=== PATIENT | male | born 1940 | race Caucasian/White ===

== ENCOUNTER → 2020-04-07 | Day surgery (SDC) | payer MEDICARE, OTHER ==
[~2020-04-07] VITALS: Ht 177.8 cm; Wt 76.8 kg
[~2020-04-07] MED LIST: ASPIRIN CHEWABL81 MG PO; ASPIRIN EC81 MG PO; CALCIUM500 MG PO; CARVEDILOL3.125 MG PO; DIOVAN80 MG PO; EZETIMIBE-SIMV1 EAC3 PO; LASIX20 MG PO; LAXATIVE5 M1 PO; MEGACE ORA6 TSP/1 OZ PO; MS CONTIN30 MG PO; NORCO 5-325 TA1 EACH PO; ONDANSETRON ODT8 MG PO; STOOL SOFTENER50 MG PO; VALSARTAN80 MG PO; VITAMIN D31250 MC1 PO; XTANDI40 MG PO
[2020-04-07 09:18] LABS: ALBUMIN 3.5 g/dL (3.4-5.0); BILIRUBIN - TOTAL 0.4 mg/dL (0.2-1.0); BUN/CREAT RATIO (CALC) 20.4 RATIO; CREATININE 0.93 mg/dL (0.67-1.17); GLOBULIN (CALCULATION) 4.1 g/dL; POTASSIUM 4.5 mmol/L (3.5-5.1); TOTAL PROTEIN 7.6 g/dL (6.4-8.2)
[2020-04-07 09:26] LABS: HCT 42.7 % (42.0-52.0); HGB 14.1 g/dl (13.2-18.0); MCH 29.7 pg (25.0-31.0); MCV 90.1 fL (78.0-100.0); MPV 10.5 fL (6.0-9.5); RBC 4.74 M/uL (4.70-6.00); RDW 12.4 % (11.5-14.0); WBC 6.9 K/uL (4.0-10.5)
== END | disposition home or self-care (01) ==
LOC: FAS 08:20
PROVIDERS: Surgery
DX: R93.3 Abnormal findings on diagnostic imaging of other parts of digestive tract (principal); R10.13 Epigastric pain; R11.0 Nausea; I25.10 Atherosclerotic heart disease of native coronary artery without angina pectoris; K82.8 Other specified diseases of gallbladder; E78.00 Pure hypercholesterolemia, unspecified; I25.2 Old myocardial infarction; I10 Essential (primary) hypertension; C61 Malignant neoplasm of prostate; I25.5 Ischemic cardiomyopathy; Z95.1 Presence of aortocoronary bypass graft; Z79.82 Long term (current) use of aspirin; Z87.891 Personal history of nicotine dependence; K21.9 Gastro-esophageal reflux disease without esophagitis; Z88.5 Allergy status to narcotic agent
CPT/HCPCS: 36415; 80053; 86140; J1610; J2704; J7120

== ENCOUNTER 2020-09-03 11:27 | Emergency (ER) | payer MEDICARE, OTHER ==
[~2020-09-03 11:27] MED LIST changes: -ASPIRIN EC81 MG PO; -CALCIUM500 MG PO; -DIOVAN80 MG PO; -LASIX20 MG PO; -LAXATIVE5 M1 PO; -MEGACE ORA6 TSP/1 OZ PO; -MS CONTIN30 MG PO; -STOOL SOFTENER50 MG PO; -VITAMIN D31250 MC1 PO; -XTANDI40 MG PO
[2020-09-03 13:08] LABS: BASOPHIL 0.4 % (0-2); EOSINOPHIL 0.3 % (0-7); HCT 30.2 % (42.0-52.0); HGB 9.6 g/dl (13.2-18.0); LYMPHOCYTE 7.2 % (15-48); MCH 27.7 pg (25.0-31.0); MCHC 31.8 g/dL (32.0-36.0); MCV 87.3 fL (78.0-100.0); MONOCYTE 8.6 % (0-12); MPV 10.9 fL (6.0-9.5); NEUTROPHIL 78.4 % (41-80); NRBC 0; PLT 351 K/uL (150-400); RBC 3.46 M/uL (4.70-6.00); RDW 17.2 % (11.5-14.0); WBC 6.9 K/uL (4.0-10.5)
[2020-09-03 13:26] LABS: BILIRUBIN NEGATIVE (NEGATIVE); BLOOD NEGATIVE Ery/uL (NEGATIVE); CLARITY CLEAR (CLEAR); COLOR YELLOW (YELLOW); GLUCOSE (U) NORMAL (NORMAL); LEUKOCYTES NEGATIVE Leu/uL (NEGATIVE); NITRITE NEGATIVE (NEGATIVE); PROTEIN TRACE (LOW) mg/dL (NEGATIVE); UROBILINOGEN 0.2 mg/dL (0.2-1.0); pH 5.5 (5.0-9.0)
[2020-09-03 13:27] LABS: ALBUMIN 2.2 g/dL (3.4-5.0); BILIRUBIN - TOTAL 0.5 mg/dL (0.2-1.0); BUN/CREAT RATIO (CALC) 40.8 RATIO; CREATININE 1.03 mg/dL (0.67-1.17); GLOBULIN (CALCULATION) 5.2 g/dL; POTASSIUM 4.7 mmol/L (3.5-5.1); TOTAL PROTEIN 7.4 g/dL (6.4-8.2)
[2020-09-03 13:43] LABS: BACTERIA TRACE
[2020-09-03 13:44] LABS: SQUAMOUS EPITHELIAL CELLS RARE
== END 2020-09-03 15:30 | disposition home or self-care (01) ==
LOC: FER 11:27
PROVIDERS: Emergency Medicine
DX: R62.7 Adult failure to thrive (principal); R53.1 Weakness; I10 Essential (primary) hypertension; E78.5 Hyperlipidemia, unspecified; Z85.46 Personal history of malignant neoplasm of prostate; Z91.041 Radiographic dye allergy status
CPT/HCPCS: 36415; 80053; 81001; 85025; 99284; J7030

== ENCOUNTER 2020-09-10 15:27 | Inpatient (IN) | payer MEDICARE, OTHER ==
[~2020-09-10] VITALS: Ht 180.3 cm; Wt 70.0 kg
[2020-09-10 16:56] LABS: BASOPHIL 0.2 % (0-2); EOSINOPHIL 0.2 % (0-7); HCT 27.9 % (42.0-52.0); HGB 8.9 g/dl (13.2-18.0); LYMPHOCYTE 6.9 % (15-48); MCH 27.3 pg (25.0-31.0); MCHC 31.9 g/dL (32.0-36.0); MCV 85.6 fL (78.0-100.0); MONOCYTE 8.3 % (0-12); MPV 10.9 fL (6.0-9.5); NEUTROPHIL 79.2 % (41-80); NRBC 0; PLT 362 K/uL (150-400); RBC 3.26 M/uL (4.70-6.00); RDW 17.3 % (11.5-14.0)
[2020-09-10 16:57] LABS: WBC 8.8 K/uL (4.0-10.5)
[2020-09-10 17:05] LABS: BILIRUBIN - TOTAL 0.5 mg/dL (0.2-1.0); CREATININE 3.3 mg/dL (0.67-1.17); GLOBULIN (CALCULATION) 4.9 g/dL; POTASSIUM 4.7 mmol/L (3.5-5.1); TOTAL PROTEIN 6.9 g/dL (6.4-8.2)
[2020-09-10 18:37] LABS: BILIRUBIN 1+ mg/dL (NEGATIVE); BLOOD 2+ Ery/uL (NEGATIVE); CLARITY CLEAR (CLEAR); COLOR YELLOW (YELLOW); GLUCOSE (U) 1+ mg/dL (NORMAL); LEUKOCYTES NEGATIVE Leu/uL (NEGATIVE); NITRITE NEGATIVE (NEGATIVE); PROTEIN 1+ mg/dL (NEGATIVE); SPECIFIC GRAVITY 1.025 (1.001-1.030); UROBILINOGEN 0.2 mg/dL (0.2-1.0)
[2020-09-10 18:44] LABS: AMORPHOUS URATES CRYSTALS MODERATE; BACTERIA 3+; GRANULAR CASTS TRACE; MUCOUS TRACE
[2020-09-10] MEDS ORDERED: MS CONTIN30 MG PO (20:27)
[2020-09-10] MEDS ORDERED: VITAMIN D31250 MC1 PO (20:28)
[2020-09-10] MEDS ORDERED: CALCIUM500 MG PO (20:29)
[2020-09-10] MEDS ORDERED: XTANDI40 MG PO (20:31)
[2020-09-10] MEDS ORDERED: CARVEDILOL3.125 MG PO (20:31)
[2020-09-10] MEDS ORDERED: LASIX20 MG PO (20:32)
[2020-09-10] MEDS ORDERED: DIOVAN80 MG PO (20:32)
[2020-09-10] MEDS ORDERED: LAXATIVE5 M1 PO (20:32)
[2020-09-10] MEDS ORDERED: STOOL SOFTENER50 MG PO (20:33)
[2020-09-10] MEDS ORDERED: ASPIRIN EC81 MG PO (20:33)
[2020-09-10] MEDS ORDERED: EZETIMIBE-SIMV1 EAC3 PO (20:34)
--- NOTE | 2020-09-11 05:39 | NUR ---
0515 PT BED ALARM ACTIVATED, STAFF WENT INTO ROOM, PT ON FLOOR, HIT BACK ON IV POLE. NOTIFIED DIRECTOR OF CASEWORK SERVICES, PT EVALUATED BY DIRECTOR OF CASEWORK SERVICES, CLEARED TO LIFT PT BACK INTO BED. INJURIES NOTED- SMALL ROUND INDENTION TO LEFT LOWER BACK FROM IV POLE. REDNESS AND BRUISING NOTED. ABRASTION TO LEFT ELBOW REOPENED-BLEEDING. ADHESIVE DRSG PLACED. PT STATES IS NOT IN PAIN AND DID NOT HIT HEAD. NO INJURIES TO HEAD. NOTED. NURSE NET DEVELOPER WITH [facility] NOTIFIED. BED ALARM ACTIVATED. 0530 SITTER AT BEDSIDE
[2020-09-11 05:52] LABS: BASOPHIL 0.4 % (0-2); EOSINOPHIL 0.1 % (0-7); HCT 27.4 % (42.0-52.0); HGB 8.9 g/dl (13.2-18.0); LYMPHOCYTE 7.9 % (15-48); MCH 27.6 pg (25.0-31.0); MCHC 32.5 g/dL (32.0-36.0); MCV 85.1 fL (78.0-100.0); MONOCYTE 8.6 % (0-12); MPV 11.2 fL (6.0-9.5); NEUTROPHIL 76.2 % (41-80); NRBC 0; PLT 360 K/uL (150-400); RBC 3.22 M/uL (4.70-6.00); RDW 17.6 % (11.5-14.0); WBC 8.4 K/uL (4.0-10.5)
--- NOTE | 2020-09-11 06:04 | NUR ---
0600 CALLED FAMILY TO NOTIFY TO UPDATE ON PT CONDITION. NO ANSWER AT THIS TIME
[2020-09-11 06:20] LABS: ALBUMIN 1.8 g/dL (3.4-5.0); BILIRUBIN - TOTAL 0.4 mg/dL (0.2-1.0); CREATININE 2.39 mg/dL (0.67-1.17); GLOBULIN (CALCULATION) 4.6 g/dL; POTASSIUM 4.5 mmol/L (3.5-5.1); TOTAL PROTEIN 6.4 g/dL (6.4-8.2)
[2020-09-12 03:59] LABS: MCH 27.1 pg (25.0-31.0); MCV 87.3 fL (78.0-100.0); MPV 11.4 fL (6.0-9.5); RBC 3.32 M/uL (4.70-6.00); RDW 17.8 % (11.5-14.0); WBC 6.4 K/uL (4.0-10.5)
[2020-09-12 04:10] LABS: BUN/CREAT RATIO (CALC) 29.3 RATIO; CREATININE 1.64 mg/dL (0.67-1.17); POTASSIUM 3.7 mmol/L (3.5-5.1)
[2020-09-13 07:25] LABS: HCT 28.4 % (42.0-52.0); HGB 8.9 g/dl (13.2-18.0); MCH 27.4 pg (25.0-31.0); MCHC 31.3 g/dL (32.0-36.0); MCV 87.4 fL (78.0-100.0); MPV 10.9 fL (6.0-9.5); RBC 3.25 M/uL (4.70-6.00); RDW 18.2 % (11.5-14.0); WBC 7.5 K/uL (4.0-10.5)
[2020-09-13 07:35] LABS: CREATININE 1.08 mg/dL (0.67-1.17); POTASSIUM 3.6 mmol/L (3.5-5.1)
--- NOTE | 2020-09-13 17:28 | NUR ---
BLADDER SCANNED AT 1200 POST VOID. 568 REMAINING. STATED TO ANCHOR CYR CATH
[2020-09-15 05:58] LABS: BASOPHIL 1.5 % (0-2); EOSINOPHIL 2.3 % (0-7); HCT 26.7 % (42.0-52.0); HGB 8.3 g/dl (13.2-18.0); LYMPHOCYTE 12.1 % (15-48); MCH 26.3 pg (25.0-31.0); MCHC 31.1 g/dL (32.0-36.0); MCV 84.8 fL (78.0-100.0); MONOCYTE 7.6 % (0-12); MPV 10.7 fL (6.0-9.5); NEUTROPHIL 65.3 % (41-80); NRBC 0; PLT 314 K/uL (150-400); RBC 3.15 M/uL (4.70-6.00); RDW 18.6 % (11.5-14.0)
[2020-09-15 06:01] LABS: WBC 4.7 K/uL (4.0-10.5)
[2020-09-15 06:20] LABS: BUN/CREAT RATIO (CALC) 18.2 RATIO; CREATININE 0.66 mg/dL (0.67-1.17)
[2020-09-15] MEDS ORDERED: MEGACE ORA6 TSP/1 OZ PO (14:30)
--- NOTE | 2020-09-15 15:37 | NUR ---
09/15/20 Naya Child, daughter / POA, requested NH placement. Her choices are [facility], [facility] or [facility]. [facility] no longer has skilled beds. [facility] does not have available beds. [place], is reviewing for their sister facility, [facility]. [facility] has accepted patient for 09/16/20, 24 hours without a sister. A repor was given to Dr. Correa and MS Caitlin RN. Please call report to: [phone] and fax DS to: [phone].
--- NOTE | 2020-09-16 10:10 | NUR ---
09/16/20 A sister was not required yesterday or last evening. Mr. Browne will be discharged to [facility] today via family car. Report given to MS Lora, RN.
== END 2020-09-16 14:00 | DRG 871 ==
LOC: FER 15:27 → FMS 18:43
PROVIDERS: Allergy & Immunology Allergy; Emergency Medicine; Hospitalist; Nurse Practitioner; ADMIT Internal Medicine
DX: A41.9 Sepsis, unspecified organism (principal); G93.41 Metabolic encephalopathy; N17.9 Acute kidney failure, unspecified; C79.51 Secondary malignant neoplasm of bone; N39.0 Urinary tract infection, site not specified; I95.9 Hypotension, unspecified; Z20.822 Contact with and (suspected) exposure to COVID-19; C61 Malignant neoplasm of prostate; R62.7 Adult failure to thrive; R19.7 Diarrhea, unspecified; E86.1 Hypovolemia; N18.30 Chronic kidney disease, stage 3 unspecified; I27.20 Pulmonary hypertension, unspecified; I12.9 Hypertensive chronic kidney disease with stage 1 through stage 4 chronic kidney disease, or unspecified chronic kidney disease; R53.83 Other fatigue; Z66 Do not resuscitate; E86.0 Dehydration; I25.10 Atherosclerotic heart disease of native coronary artery without angina pectoris; Z95.1 Presence of aortocoronary bypass graft; I25.2 Old myocardial infarction; H91.90 Unspecified hearing loss, unspecified ear; Z80.52 Family history of malignant neoplasm of bladder; Z82.5 Family history of asthma and other chronic lower respiratory diseases; Z87.891 Personal history of nicotine dependence; Z79.82 Long term (current) use of aspirin; Z79.02 Long term (current) use of antithrombotics/antiplatelets
CPT/HCPCS: 36415; 70450; 72072; 72110; 74022; 80048; 80053; 81001; 85025; 87045; 87046; 87205; 87324; 87449; 87493; 93970; 97110; 97116; 97161; 97166; 97530; 97530-GP; 97535; G0378; J0696; J1644; J1650; J2405; J3480; J7030; U0002